=== PATIENT | female | born 2000 | race Caucasian/White ===

== ENCOUNTER 2021-09-04 18:36 | Emergency (ER) | payer BC, SELFPAY ==
[2021-09-04 18:38] VITALS: BP 116/76; PULSE 57; RESP 17; O2SAT 99; BMI 21.7
--- NOTE | 2021-09-04 19:38 | ED_ITS ---
HPI - General Adult General Chief complaint: General Medical Stated complaint: inhaled chemical Time Seen by Provider: 09/04/21 19:18 Source: patient Mode of arrival: ambulatory Limitations: no limitations History of Present Illness HPI narrative: 21-year-old female who is a [employer] student, biochemistry major who was exposed to diethyl ether during a experiment where she was trying to make an alfredo. The patient states that she was doing the experiment under a chemical hol[place]. She states that diethyl ether was in a flask that she was using to make an alfredo. She states that when she went to smell the alfredo, she inhaled diethyl ether. She believes she was exposed to this chemical for approximately 10 minutes. Exposure occurred around 4:45 p.m.. She became symptomatic around 5:05 p.m.. She states she felt tired and fatigued. She had a headache and felt dizzy. She also had nausea. Her symptoms persisted so she came to the emergency department for evaluation. At the time my evaluation she states she is feeling tired and had a headache but had no other symptoms. Patient was in her usual state of health before this exposure. Related Data Allergies Allergy/AdvReac Type Severity Reaction Status Date / Time No Known Allergies Allergy Verified 09/04/21 18:38 Review of Systems Review of Systems: Yes all other systems are reviewed and are negative [facility] Past Medical History [facility] Narrative: Past medical history: None. Past surgical history: None. 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 She denies tobacco, alcohol and drug use. Medical History (Updated 09/04/21 @ 21:15 by Patricio Fernandez MD) No pertinent past medical history Social History Social History Advance Directives: No Advance Directives Information Provided: Yes Patient : No Physical Exam Vital Signs: Vital Signs: Last Vital Signs Pulse 57 09/04/21 18:38 Resp 17 09/04/21 18:38 BP 116/76 09/04/21 18:38 Pulse Ox 99 09/04/21 18:38 Body Mass Index 21.7 Const: General: cooperative and no acute distress Orientation/consciousness: oriented to person and oriented to place Limitations: no limitations HENMT: Head: Yes normal to inspection, Yes normocephalic and Yes atraumatic Ears: external ears normal General nose exam: Normal external nose present Face and sinus: Yes normal facial exam Mouth: Normal oral and palatal mucosa present Throat: Yes posterior oropharynx normal Eyes: General: appearance normal, both eyes and all related structures Pupils: Equal, round and reactive pupils present Neck: Neck: Yes normal visual inspection, Yes no lymphadenopathy, Yes trachea midline and Yes supple Chest: Chest palpation & inspection: normal inspection of the chest and normal palpation of entire chest wall Resp: Effort & Inspection: normal respiratory effort and able to speak in complete sentences Auscultation: clear to auscultation bilaterally Cardio: Rate: regular rate Rhythm: regular rhythm Heart sounds: S1 normal heart sound present, S2 normal heart sound present and no murmurs GI: Inspection: Yes normal to inspection Palpation (GI): Soft to palpation, nontender and no guarding Auscultation: normal bowel sounds : General: Yes no CVA tenderness Back/Spine/Pelvis: Back: no CVA tenderness Skin: General skin exam: no rashes or lesions noted Neuro: General: oriented to person and oriented to place Cranial nerves: Yes CN's II-XII intact bilaterally and Yes Equal, round and reactive pupils present Cognition (Neuro): normal cognition Motor exam (neuro): 5/5 motor strength present throughout Extrem: General: Yes normal to inspection Psych: Appearance: grossly normal Speech and movement: Normal speech and movement present Affect: normal affect Attitude: cooperative Thought process: Normal thought process present Thought content: Normal thought content present Course Course Course Narrative: 21-year-old female who presents emergency department for evaluation of headache, nausea, dizziness and fatigue after being exposed to diethyl ether during a biochemistry experiment that she was doing at her college. Exposure occurred around 4:45 p.m. but the patient still has symptoms of headache and fatigue. The patient's vital signs were normal. Patient's physical exam was unremarkable. The patient will be treated with 30 minutes of oxygen via 100% non-rebreather to see if this improves her symptoms. She was also given Tylenol 975 mg orally. 2110 Discharge Plan Discharge Clinical Impression: Chemical exposure, Dizziness Headache Qualifiers: Headache chronicity pattern: acute headache Intractability: not intractable Patient Disposition: Home, Self-Care Additional Instructions: Take ibuprofen 200 mg pills, 3 pills every 6 hours as needed for pain. Take Tylenol (acetaminophen) 500 mg pills, 2 pills every 4 to 6 hours as needed for pain. Follow-up with your doctor in 2 days. Please return to the emergency department if your symptoms get worse or if you develop any symptoms that are concerning to you.
--- NOTE | 2021-09-04 20:55 | PC.NURSE ---
PT PLACED ON NON REBREATHER FOR 30 MIN FEEL BETTER.
[2021-09-04] MEDS: Acetaminophen 325 MG TABLET 975 MG PO (21:02)
== END 2021-09-04 21:18 | disposition home or self-care (01) ==
PROVIDERS: Emergency Provider Emergency Medicine Emergency Medical Services
DX: R42 Dizziness and giddiness (principal); Z57.5 Occupational exposure to toxic agents in other industries
CPT/HCPCS: 99283; 99284